=== PATIENT | male | born 1940 | race Caucasian/White ===

== ENCOUNTER → 2023-09-21 12:22 | Outpatient (CLI) | payer OTHER, SELFPAY ==
--- NOTE | 2023-09-21 12:25 | DI.ECHO.S_ITS ---
[facility]+ [facility] : : [address] : : [place] : : [id number] : : Phone: [phone] Echocardiogram Report + + :Name: KATHERIN SEVILLA Study Date: 09/21/2023 Height: 70 in : :[facility] ReadingLocation: Weight: 211 lb : : Gender: Male BSA: 2.1 m2 : :: 1940 Age: 82 yrs BP: 142/81 mmHg: :Reason For Study: CORONARY ARTERY DISEASE : :Ordering Physician: RODOLFO, : :GREGORIO Performed By: Arleen Doan : :Referring: GREGORIO REYNOLDS : + + Interpretation Summary Grossly normal left ventricle size with ejection fraction 60-65%. Diastolic parameters suggest a relaxation abnormality of the left ventricle, consistent with probable normal filling pressures. No significant valvular abnormality. Comparison is made with the echocardiogram of 07/03/2023, no significant change. Procedure: A two-dimensional transthoracic echocardiogram with color flow and Doppler was performed. The study quality was technically difficult. Comparison is made with the echocardiogram of 07/03/2023. The patient had occasional PVCs during the exam. The patient was in sinus rhythm with heart rates between 60-72 bpm during the exam. Left Ventricle: The left ventricle is grossly normal size. The ejection fraction is estimated to be 60-65%. There are no obvious focal wall motion abnormalities noted but poor endocardial definition reduces the sensitivity for the detection of such. Diastolic parameters suggest a relaxation abnormality of the left ventricle, consistent with probable normal filling pressures. Right Ventricle: The right ventricle is normal in size and function. Atria: The left atrial size is normal. Right atrial size is normal. There is no Doppler evidence for an interatrial shunt. Mitral Valve: The mitral valve is normal in structure and function. There is mild mitral annular calcification. There is trace mitral regurgitation. Aortic Valve: The aortic valve is trileaflet. The aortic valve opens well. There is mild aortic valve sclerosis. There is no aortic valve stenosis. No aortic regurgitation is present. Tricuspid Valve: The tricuspid valve is normal in structure and function. There is trace tricuspid regurgitation. Pulmonic Valve: The pulmonic valve leaflets are thin and pliable; valve motion is normal. There is trace pulmonic regurgitation. Great Vessels: The aortic root is normal size. The dimensions of the ascending aorta are normal. The IVC is of normal diameter and collapses greater than 50% with a sniff. This suggests a low right atrial pressure of 3 mm Hg. Pericardium/ Pleura There is no pericardial effusion. There is no pleural effusion. MMode/2D Measurements & Calculations LVIDd: 4.2 cm LVOT diam: 2.1 cm LVIDs: 2.7 cm Ao root diam: 3.7 cm FS: 36.5 % asc Aorta Diam: 3.4 cm IVSd: 0.82 cm Ao Arch Diam (Prox Trans): 2.9 cm LVPWd: 0.76 cm LV cervantes. diameter/BSA (cm/m^2): 2.0 LV sys. diameter/BSA (cm/m^2): 1.3 LA A2 area: 20.4 cm2 RA long axis: 5.0 cm LA A4 area: 14.8 cm2 RA area: 14.8 cm2 LA length (vol): 4.6 cm RA vol: 37.6 ml LA vol: 55.6 ml RA : 17.6 ml/m2 LA vol index: 26.0 ml/m2 IVC diam: 1.9 cm RVD1 (basal): 3.8 cm TAPSE: 1.5 cm Doppler Measurements & Calculations Ao V2 max: 114.5 cm/sec LVOT Max Marky: 89.0 cm/sec Ao V2 mean: 80.8 cm/sec LV V1 max P.2 mmHg Ao max P.3 mmHg LV V1 VTI: 19.4 cm Ao mean P.0 mmHg MALACHI(I,D): 2.7 cm2 Ao V2 VTI: 24.7 cm MALCAHI(V,D): 2.7 cm2 sev ratio: 0.79 MALACHI indexed to BSA (cm^2/m^2): 1.3 MV E max marky: 64.0 cm/sec PA V2 max: 85.2 cm/sec MV A max marky: 73.0 cm/sec PA V2 mean: 57.2 cm/sec MV E/A: 0.88 PA mean P.5 mmHg Med Peak E' Marky: 4.2 cm/sec PA pr(Accel): 34.5 mmHg E/E' med: 15.2 Lat Peak E' Marky: 6.2 cm/sec E/E' lat: 10.3 E/e' average: 12.8 MV dec time: 0.33 sec SV(LVOT): 67.6 ml Electronically signed by: Milka Hooper on Reading Physician:09/21/2023 07:45 PM
== END ==
PROVIDERS: Referring Provider Orthopaedic Surgery; Visit Provider Orthopaedic Surgery
DX: I34.81 Nonrheumatic mitral (valve) annulus calcification (principal); I35.8 Other nonrheumatic aortic valve disorders; I25.10 Atherosclerotic heart disease of native coronary artery without angina pectoris
CPT/HCPCS: 93306